=== PATIENT | male | born 1960 | race Caucasian/White ===

== ENCOUNTER 2018-10-08 07:48 | Emergency (ER) | payer BC ==
--- NOTE | 2018-10-08 07:50 | ERPHSYRPT ---
- History of Present Illness Time Seen by Provider: 10/08/18 07:49 Source: patient, family Exam Limitations: no limitations Physician History: 58 y/o diabetic white male with h/o htn, scraped left ant knee 2 weeks ago. pt has been washing, scrubbing area and applied antibx ointment. pt states he "lanced" area and did get a small amt pus out. sx not improving. pt states his last tetanus injection was 2 to 3 years ago Timing/Duration: day(s) (14) Quality: painful Severity: mild Location: extremities (skin of ant left knee) Possible Causes: other (abrasion) Associated Symptoms: change in skin texture Allergies/Adverse Reactions: No Known Drug Allergies Allergy (Verified 04/15/13 10:11) Home Medications: Aspirin EC 81 mg [Ecotrin 81 mg] 81 mg PO DAILY 08/22/12 [History] Gemfibrozil 600 mg [Lopid 600 mg] 600 mg PO DAILY 08/22/12 [History] Insulin Glargine [Lantus Insulin] 10 unit SQ HS 08/22/12 [History] Lisinopril 10 mg [Zestril 10 MG] 10 mg PO DAILY 08/22/12 [History] Metformin HCl 1000 mg [Glucophage 1000 MG] 1,000 mg PO BID 08/22/12 [History] [place]-3 Fatty Acids/Fish Oil [Fish Oil 1,000 mg Capsule] 1,000 mg PO DAILY 08/22/12 [History] Hx Tetanus, Diphtheria Vaccination/Date Given: Yes (2009) Hx Influenza Vaccination/Date Given: Yes (2011) Hx Pneumococcal Vaccination/Date Given: No - Review of Systems Constitutional: No Symptoms, No Fever Eyes: No Symptoms Ears, Nose, & Throat: No Symptoms Respiratory: No Symptoms Cardiac: No Symptoms Abdominal/Gastrointestinal: No Symptoms Genitourinary Symptoms: No Symptoms Musculoskeletal: No Symptoms Skin: Cellulitis, Induration Neurological: No Symptoms Psychological: No Symptoms Endocrine: No Symptoms Hematologic/Lymphatic: No Symptoms Immunological/Allergic: No Symptoms All Other Systems: Reviewed and Negative - Past Medical History Pertinent Past Medical History: Yes Neurological History: No Pertinent History ENT History: No Pertinent History Cardiac History: Hypertension Respiratory History: No Pertinent History Endocrine Medical History: Diabetes Type II Musculoskeletal History: Osteoarthritis, Rheumatoid Arthritis GI Medical History: No Pertinent History History: No Pertinent History Psycho-Social History: No Pertinent History Male Reproductive Disorders: No Pertinent History - Past Surgical History Past Surgical History: Yes Neuro Surgical History: No Pertinent History Cardiac: No Pertinent History Respiratory: No Pertinent History Gastrointestinal: No Pertinent History Genitourinary: No Pertinent History Musculoskeletal: Orthopedic Surgery Male Surgical History: No Pertinent History Other Surgical History: rt knee ,rt hand arm - Social History Smoking Status: Never smoker How long have you smoked: 5 years Exposure to second hand smoke: No Drug Use: none Patient Lives Alone: No - Physical Exam General Appearance: no apparent distress, alert Eye Exam: PERRL/EOMI, eyes nml inspection Ears, Nose, Throat Exam: normal ENT inspection, moist mucous membranes Neck Exam: normal inspection, non-tender, supple, full range of motion Respiratory Exam: normal breath sounds, lungs clear, airway intact, No chest tenderness, No respiratory distress Gastrointestinal/Abdomen Exam: soft, No tenderness Rectal Exam: not done Back Exam: normal inspection, normal range of motion, No CVA tenderness Extremity Exam: normal range of motion, pelvis stable, inflammation, swelling, tenderness (ant left knee redness and induration; no expressible pus at this time) Neurologic Exam: alert, oriented x 3, cooperative, cullet washer II-XII nml as tested, normal mood/affect, nml station & gait Skin Exam: other (skin of ant left knee with localized cellulitis and induration ; see above) Lymphatic Exam: No adenopathy SpO2 Interpretation: normal O2 Delivery: Room Air - Course Nursing assessment & vital signs reviewed: Yes - Progress Progress: unchanged Counseled pt/family regarding: diagnosis, need for follow-up - Departure Departure Disposition: Home Clinical Impression: Cellulitis of left knee Condition: Stable Critical Care Time: No Referrals: KYLIE MARIN [Primary Care Provider] - Additional Instructions: keep site clean daily with soap and water. no antibiotic ointments lotions or creams. may use heating pad, not directly on skin and at warm setting, 3 times daily. return to ED tomorrow morning for reevaluation, sooner if symptoms worsening. Prescriptions: Smz/Tmp Ds Tablet [Bactrim Ds Tablet] 1 udtab PO BID #14 tablet
[2018-10-08] MEDS ORDERED: NORCO 5/325 MG ONE (08:01)
[2018-10-08] MEDS ORDERED: Rocephin 1000 MG INJ ONE (08:01)
[2018-10-08] MEDS ORDERED: BACTRIM DS TABLET PO ONE (08:01)
[2018-10-08] MEDS: Rocephin 1000 MG INJ IM ONE (08:09)
[2018-10-08] MEDS: BACTRIM DS TABLET PO ONE (08:09)
[2018-10-08] MEDS: NORCO 5/325 MG PO ONE (08:11)
[2018-10-08 08:42] VITALS: BP 148/70; PULSE 92; O2SAT 98
== END 2018-10-08 08:43 | disposition home or self-care (01) ==
LOC: ED 07:48
DX: L03.116 Cellulitis of left lower limb (principal); I10 Essential (primary) hypertension; E11.9 Type 2 diabetes mellitus without complications; Z79.4 Long term (current) use of insulin; M06.9 Rheumatoid arthritis, unspecified; Z79.899 Other long term (current) drug therapy
CPT/HCPCS: 87070; 87077; 87186; 96372; 99284; J0696; A9270-GY

== ENCOUNTER 2018-10-09 07:56 | Emergency (ER) | payer BC ==
[2018-10-09 08:37] LABS: BASOPHIL % 0.2 % (0.0-0.4); Basophil (Absolute #) 0.02 (0-0.4); Eosinophil % 3.1 % (0.00-5.0); Eosinophil (Absolute #) 0.34 (0-0.5); Granulocyte Absolute (ANC) 7.34 (1.4-6.9); Granulocytes % 67.2 % (36.0-66.0); Lymphocyte (Absolute #) 2.39 (1.0-4.6); Lymphocytes % 21.9 % (24.0-44.0); Mean Cell Volume 91.6 fl (78-100); Mean Corpuscular Hemoglobin 30.5 pg (26-32); Mean Corpuscular Hgb Concent. 33.3 g/dl (32-36); Mean Platelet Volume 10.9 fl (6-9.5); Monocyte (Absolute #) 0.83 (0.0-1.3); Monocytes % 7.6 % (0.0-12.0); Platelet Count 218 K/mm3 (150-450); Red Blood Count 3.93 M/mm3 (4.1-5.6); Red Cell Distribution Width 13.1 % (11.5-14.0); White Blood Count 10.9 K/mm3 (4.0-10.5)
[2018-10-09 08:51] LABS: ANION GAP 13.9 MEQ/L (5-15); BLOOD UREA NITROGEN 16 mg/dL (9-20); CHLORIDE 109 mmol/L (98-107); Calcium 9.7 mg/dL (8.4-10.2); Carbon Dioxide 23 mmol/L (22-30); Creatinine 1 0.81 mg/dL (0.66-1.25); Glucose 182 mg/dL (74-106); Potassium 4.6 mmol/L (3.5-5.1); SODIUM 141 mmol/L (137-145)
[2018-10-09] MEDS ORDERED: Zosyn 3.375GM/100 Ml D5W 3.375 GM/100 ML IVPB IV STA (09:39)
[2018-10-09] MEDS ORDERED: MORPHINE SULFATE 2 MG INJ IV ONE (09:40)
[2018-10-09] MEDS ORDERED: MORPHINE SULFATE 2 MG INJ ONE (09:41)
[2018-10-09] MEDS ORDERED: Vancomycin 1GM/ Ns 250ML*** 250 ML IV ONE ×2 (09:42→13:24)
[2018-10-09] MEDS: Vancomycin 1GM/ Ns 250ML*** 1 GM/250 ML IVPB IV SCH ×2 (09:44→13:25)
--- NOTE | 2018-10-09 11:14 | XRAY ---
Indication: Left knee abscess 2 weeks. Pain, erythema, and swelling. Conventional contrast enhanced CTA centered around the left knee was performed using 100 cc Isovue 370 contrast. Cutaneous markers placed over the region of interest. Two-dimensional sagittal and coronal reformatted images obtained. Additional 3-dimensional reformatted images obtained using a separate workstation. Comparison: None Left knee articulation intact. There are 4 cutaneous BB markers anterior lateral to the knee joint demonstrating cutaneous/subcutaneous soft tissue swelling/induration favoring cellulitis based on clinical history. Minimal fluid in the deep soft tissues presumed reactive but no walled off fluid collection, emphysema or suspicious solid/cystic mass. Visualized distal superficial femoral, popliteal, and proximal trifurcation arteries are normal in CTA appearance. Accompanying venous vessels and visualized soft tissues are unremarkable. There is mild medial knee joint space narrowing/spurring and tiny nonspecific effusion. Tiny bony exostosis emanates from the posterior medial tibial shaft. No acute fracture or suspicious bony lesions. Impression: 1. CTA of the left knee is negative for critical stenosis, obstruction, or AV malformation. 2. Anterior lateral knee cutaneous and subcutaneous soft tissue swelling/induration favoring cellulitis with minimal reactive fluid. No walled off fluid collection/emphysema. 3. Incidental medial knee degenerative changes. CT DI 20.63
[2018-10-09] MEDS ORDERED: Zosyn 3.375GM/100 Ml D5W 3.375 GM/100 ML IVPB IV ONE (11:55)
--- NOTE | 2018-10-09 12:10 | ERPHSYRPT ---
- History of Present Illness Source: patient Exam Limitations: no limitations Patient Subjective Stated Complaint: DX YESTERDAY IN ER WITH ABSCESS OF LEFT KNEE. WAS TOLD TO COME BACK TODAY TO ER FOR REEVALUATION OF ABSCESS. Triage Nursing Assessment: AMBULATED TO ROOM PER SELF WITHOUT DIFFICULTY. SKIN W/D, COLOR NORMAL. ABSCESS NOTED TO LEFT KNEE WITHOUT DRAINAGE. AREA WAS MARKED WITH INK PEN YESTERDAY AND THERE IS SOME INCREASED AREA OF REDNESS NOTED. Physician History: Pt is a 58 y/o male that presented to the ER yesterday, secondary to wound on his L knee. Pt fell on the knee a couple of weeks ago, and developed a wound. He treated it at home, and lanced it at home as well. He came yesterday, and his wound was cultured, and he was placed on Bactrim. Pt was instructed to come back to the ER, if no improvement. Pt presented today. Pt denies F/C/S. No SOB or cough. No chest pain or palpitations. There is pain of the L knee, but the wound is closed at this point. Method of Injury: fell Occurred: other (a couple of weeks ago.) Quality: constant, aching, throbbing Lower Extremities Pain: knee: left (wound and pain) Modifying Factors: Improves With: movement, pain medication, rest Associated Symptoms: none Allergies/Adverse Reactions: No Known Drug Allergies Allergy (Verified 04/15/13 10:11) Home Medications: Aspirin EC 81 mg [Ecotrin 81 mg] 81 mg PO DAILY 08/22/12 [History] Gemfibrozil 600 mg [Lopid 600 mg] 600 mg PO DAILY 08/22/12 [History] Lisinopril 10 mg [Zestril 10 MG] 10 mg PO DAILY 08/22/12 [History] Metformin HCl 1000 mg [Glucophage 1000 MG] 1,000 mg PO BID 08/22/12 [History] [place]-3 Fatty Acids/Fish Oil [Fish Oil 1,000 mg Capsule] 1,000 mg PO DAILY 08/22/12 [History] Insulin Glargine,Hum.rec.anlog [Basaglar Kwikpen U-100] 25 unit SQ DAILY [History] Sildenafil Citrate [Viagra] 100 mg PO UD 10/09/18 [History] Zolpidem Tartrate 10 mg PO HS 10/09/18 [History] Hx Tetanus, Diphtheria Vaccination/Date Given: Yes (2009) Hx Influenza Vaccination/Date Given: Yes (2011) Hx Pneumococcal Vaccination/Date Given: No - Review of Systems Constitutional: No Fever, No Chills Eyes: No Symptoms Ears, Nose, & Throat: No Symptoms Respiratory: No Cough, No Dyspnea Cardiac: No Chest Pain, No Edema, No Syncope Abdominal/Gastrointestinal: No Abdominal Pain, No Nausea, No Vomiting, No Diarrhea Genitourinary Symptoms: No Dysuria Musculoskeletal: Arthralgias, Joint Redness, Joint Pain, Joint Swelling (L knee) Neurological: No Dizziness, No Focal Weakness, No Sensory Changes - Past Medical History Pertinent Past Medical History: Yes Neurological History: No Pertinent History ENT History: No Pertinent History Cardiac History: Hypertension Respiratory History: No Pertinent History Endocrine Medical History: Diabetes Type II Musculoskeletal History: Osteoarthritis, Rheumatoid Arthritis GI Medical History: No Pertinent History History: No Pertinent History Psycho-Social History: No Pertinent History Male Reproductive Disorders: No Pertinent History - Past Surgical History Past Surgical History: Yes Neuro Surgical History: No Pertinent History Cardiac: No Pertinent History Respiratory: No Pertinent History Gastrointestinal: No Pertinent History Genitourinary: No Pertinent History Musculoskeletal: Orthopedic Surgery Male Surgical History: No Pertinent History Other Surgical History: rt knee ,rt hand arm - Social History Smoking Status: Current every day smoker How long have you smoked: 5 years Exposure to second hand smoke: No Drug Use: none Patient Lives Alone: No - Nursing Vital Signs Nursing Vital Signs: Initial Vital Signs Temperature 98.3 F 10/09/18 08:12 Pulse Rate 86 10/09/18 08:12 Respiratory Rate 16 10/09/18 08:12 Blood Pressure 152/85 10/09/18 08:12 O2 Sat by Pulse Oximetry 98 10/09/18 08:12 Pain Scale Pain Intensity 5 - Physical Exam General Appearance: alert Eyes, Ears, Nose, Throat Exam: moist mucous membranes Neck Exam: non-tender, supple Cardiovascular/Respiratory Exam: chest non-tender, normal breath sounds, regular rate/rhythm, no respiratory distress Gastrointestinal/Abdominal Exam: non-tender, guarding Knees Exam: left knee: joint effusion, pain, soft tissue tenderness, swelling ( wound) Neuro/Tendon Exam: normal sensation, normal motor functions Mental Status Exam: alert, oriented x 3, cooperative SpO2: 98 - Course Nursing assessment & vital signs reviewed: Yes - CT Exams Left Lower Extremity CT Interpretation: Tele-radiologist Report (Anterior lateral knee cutanous and subcutaneous soft tissue swelling/induration favoring cellulitis with minimal reactive fluid. No walled off fluid collection/emphysema.) Ordered Tests: Active Orders 24 hr Category Date Time Status IV Insertion STAT Care 10/09/18 08:20 Active LOWER EXTREMITY W CONTRAST [CTA LOWER EXTREMITY W Exams 10/09/18 09:42 Completed CONTRAST] [CT] Stat BLOOD CULTURE Stat Lab 10/09/18 09:00 Received BMP Stat Lab 10/09/18 08:30 Completed CBC W DIFF Stat Lab 10/09/18 08:19 Completed Medication Summary Generic Name Dose Route Start Last Admin Trade Name Freq PRN Reason Stop Dose Admin Vancomycin HCl 1 gm in 250 mls @ 167 mls/hr 10/09/18 09:45 10/09/18 09:44 Vancomycin 1gm/ Ns 250ml IV 10/09/18 11:44 167 mls/hr Q1H STEPHANIE Administration Discontinued Medications Generic Name Dose Route Start Last Admin Trade Name Freq PRN Reason Stop Dose Admin Piperacillin Sod/Tazobactam Sod 3.375 gm in 100 mls @ 200 mls/hr 10/09/18 09: 39 Zosyn 3.375gm/100 Ml D5w IV 10/09/18 10:08 STAT STA Piperacillin Sod/Tazobactam Sod Confirm 10/09/18 11:55 Zosyn 3.375gm/100 Ml D5w Administered 10/09/18 11:56 Dose 3.375 gm in 100 mls @ ud IV .STK-MED ONE Morphine Sulfate 2 mg 10/09/18 09:40 10/09/18 09:43 Morphine Sulfate 2 Mg Inj IV 10/09/18 09:41 2 mg STAT ONE Administration Morphine Sulfate Confirm 10/09/18 09:41 Morphine Sulfate 2 Mg Inj Administered 10/09/18 09:42 Dose 2 mg .ROUTE .STK-MED ONE Lab/Rad Data: Laboratory Result Diagrams 10/09/18 08:19 10/09/18 08:30 Laboratory Results 10/09/18 10/09/18 Range/Units 08:30 08:19 WBC 10.9 H (4.0-10.5) K/mm3 RBC 3.93 L (4.1-5.6) M/mm3 Hgb 12.0 L (12.5-18.0) gm/dl Hct 36.0 L (42-50) % MCV 91.6 (78-100) fl MCH 30.5 (26-32) pg MCHC 33.3 (32-36) g/dl RDW 13.1 (11.5-14.0) % Plt Count 218 (150-450) K/mm3 MPV 10.9 H (6-9.5) fl Gran % 67.2 H (36.0-66.0) % Eos # (Auto) 0.34 (0-0.5) Absolute Lymphs (auto) 2.39 (1.0-4.6) Absolute Monos (auto) 0.83 (0.0-1.3) Lymphocytes % 21.9 L (24.0-44.0) % Monocytes % 7.6 (0.0-12.0) % Eosinophils % 3.1 (0.00-5.0) % Basophils % 0.2 (0.0-0.4) % Absolute Granulocytes 7.34 H (1.4-6.9) Basophils # 0.02 (0-0.4) Sodium 141 (137-145) mmol/L Potassium 4.6 (3.5-5.1) mmol/L Chloride 109 H (98-107) mmol/L Carbon Dioxide 23 (22-30) mmol/L Anion Gap 13.9 (5-15) MEQ/L BUN 16 (9-20) mg/dL Creatinine 0.81 (0.66-1.25) mg/dL Estimated GFR > 60.0 ML/MIN Glucose 182 H (74-106) mg/dL Calcium 9.7 (8.4-10.2) mg/dL - Progress Progress: unchanged Progress Note: 10/09/18 12:13 Pt was seen and examined. Labs were done, and showed leukocytosis with WBCs of 10.9. Pt had blood culturesx2 done, Vanco and Zosyn was given IV. Dr Marin, would like pt to go to [facility], secondary to fear of septic arthritis , and not having ortho here. Transfer center was contacted, and pt was auto accepted. Dr Ramires accepted pt to the ER. Will see patient in: other (Transfer to regional ER) - Departure Departure Disposition: Transfer Clinical Impression: Cellulitis of left knee Condition: Stable Critical Care Time: No Referrals: KYLIE MARIN [Primary Care Provider] - Additional Instructions: Pt to be transferred to [facility] ER, Dr Ramires accepted.
[2018-10-09 14:25] VITALS: BP 122/72; PULSE 68; O2SAT 97
== END 2018-10-09 14:30 | disposition short-term general hospital (02) ==
LOC: ED 07:56
DX: L03.116 Cellulitis of left lower limb (principal)
CPT/HCPCS: 36000; 36415; 73706; 80048; 85025; 87040; 96365; 96366; 96367; 96374; 99285; J2270; J2543; J3370

== ENCOUNTER 2020-04-22 07:56 | Day surgery (SDC) | payer OTHER ==
[2020-04-22] MEDS ORDERED: Depo-Medrol 40 MG/ML IM ONE (07:57)
[2020-04-22] MEDS ORDERED: LIDOCAINE HCL 2% 100 MG/5 ML IJ ONE (07:57)
[2020-04-22] MEDS ORDERED: Ketamine HCl 50 MG/ML ONE (09:35)
[2020-04-22] MEDS ORDERED: DIPRIVAN 200 MG/20 ML IV ONE ×2 (09:35→09:48)
--- NOTE | 2020-04-22 11:31 | XRAY ---
Indication: Bilateral L4-S1 MBB. Intraoperative fluoroscopy was provided for 1 minute 4 seconds. 5 digital spot images submitted for interpretation demonstrates posterior needle tips projecting over the expected left and right L4-S1 nerve roots. Correlate with intraoperative findings/report. Incidental L4-L5 fusion surgery with bilateral posterior spinal hardware and intervertebral spacer.
--- NOTE | 2020-04-22 11:33 | XRAY ---
1 minute 4 seconds of fluoroscopy was used in surgery for a bilateral L4-L5 and L5-S1 MBB.
[2020-04-22] MEDS ORDERED: Lactated Ringers 1,000 ML IV ONE (15:53)
== END 2020-04-22 10:10 | disposition home or self-care (01) ==
LOC: SDC-PAIN 07:56
PROVIDERS: ATTEND Psychiatry & Neurology Pain Medicine
DX: M47.816 Spondylosis without myelopathy or radiculopathy, lumbar region (principal); E11.9 Type 2 diabetes mellitus without complications; I10 Essential (primary) hypertension; E78.00 Pure hypercholesterolemia, unspecified; E11.42 Type 2 diabetes mellitus with diabetic polyneuropathy; M06.9 Rheumatoid arthritis, unspecified; M79.7 Fibromyalgia; L40.50 Arthropathic psoriasis, unspecified; Z79.899 Other long term (current) drug therapy
CPT/HCPCS: 64493; 64494; 72020; 77002; 82947; J1030; J2704

== ENCOUNTER 2020-06-24 06:57 | Day surgery (SDC) | payer BC, OTHER ==
[2020-06-24] MEDS ORDERED: BUPIVACAINE 0.5% VIAL IJ ONE (06:58)
[2020-06-24] MEDS ORDERED: Depo-Medrol 40 MG/ML IM ONE (06:58)
[2020-06-24] MEDS ORDERED: Ketamine HCl 50 MG/ML ONE (07:55)
[2020-06-24] MEDS ORDERED: DIPRIVAN 200 MG/20 ML IV ONE (07:55)
--- NOTE | 2020-06-24 09:21 | XRAY ---
25 seconds fluoroscopy time in surgery for bilateral injections of the SI joints.
--- NOTE | 2020-06-24 09:22 | XRAY ---
Indication: Bilateral SI joint injection. Intraoperative fluoroscopy provided for 25 seconds. 4 digital spot images submitted for interpretation demonstrates posterior needle tip projecting over the inferior left and right SI joint. Correlate with intraoperative findings/report.
[2020-06-24] MEDS ORDERED: Lactated Ringers 1,000 ML IV ONE (14:31)
== END 2020-06-24 08:49 | disposition home or self-care (01) ==
LOC: SDC-PAIN 06:57
PROVIDERS: ATTEND Psychiatry & Neurology Pain Medicine
DX: M46.1 Sacroiliitis, not elsewhere classified (principal); E11.42 Type 2 diabetes mellitus with diabetic polyneuropathy; I10 Essential (primary) hypertension; M06.9 Rheumatoid arthritis, unspecified; E78.00 Pure hypercholesterolemia, unspecified; M79.7 Fibromyalgia
CPT/HCPCS: 27096; 72202; 77002; 82947; G0260; J1030; J2704

== ENCOUNTER 2020-09-09 06:58 | Day surgery (SDC) | payer OTHER ==
[2020-09-09] MEDS ORDERED: BUPIVACAINE 0.5% VIAL IJ ONE (06:59)
[2020-09-09] MEDS ORDERED: DIPRIVAN 200 MG/20 ML IV ONE (08:27)
--- NOTE | 2020-09-09 10:44 | XRAY ---
Indication: Bilateral L4-S1 MBB. Intraoperative fluoroscopy provided for 22 seconds. Single digital spot images submitted for interpretation demonstrates posterior needle tips projecting over the expected left and right L4-S1 nerve roots. Correlate with intraoperative findings/report. Incidental L4- L5 fusion surgery with bilateral posterior spinal hardware and intervertebral spacer.
--- NOTE | 2020-09-09 11:55 | XRAY ---
22 seconds of fluoroscopy was used in surgery for a bilateral L4-L5, L5-S1 MBB.
[2020-09-09] MEDS ORDERED: Lactated Ringers 1,000 ML IV ONE (15:59)
== END 2020-09-09 08:55 | disposition home or self-care (01) ==
LOC: SDC-PAIN 06:58
PROVIDERS: ATTEND Psychiatry & Neurology Pain Medicine
DX: M47.816 Spondylosis without myelopathy or radiculopathy, lumbar region (principal); I10 Essential (primary) hypertension; E78.5 Hyperlipidemia, unspecified; M79.7 Fibromyalgia; E11.42 Type 2 diabetes mellitus with diabetic polyneuropathy; Z79.899 Other long term (current) drug therapy
CPT/HCPCS: 64493; 64494; 72020; 77002; 82947; J2704

== ENCOUNTER 2020-10-21 08:06 | Day surgery (SDC) | payer OTHER ==
[2020-10-21] MEDS ORDERED: Depo-Medrol 40 MG/ML IM ONE (08:07)
[2020-10-21] MEDS ORDERED: Xylocaine 1% Vial 30 ML PF IJ ONE (08:07)
[2020-10-21] MEDS ORDERED: BUPIVACAINE 0.5% VIAL IJ ONE (08:07)
[2020-10-21] MEDS ORDERED: DIPRIVAN 200 MG/20 ML IV ONE ×2 (08:56→09:02)
--- NOTE | 2020-10-21 11:34 | XRAY ---
Indication: Left L4-S1 RFA. Intraoperative fluoroscopy provided for 58 seconds. 3 digital spot images submitted for interpretation demonstrates posterior needle tips projecting over the expected left L4-S1 nerve roots. Correlate with intraoperative findings/report. Incidental bilateral L4-L5 posterior fusion hardware/intervertebral spacer.
--- NOTE | 2020-10-21 11:40 | XRAY ---
58 seconds fluoroscopy time in surgery for left L4-S1 RFA.
[2020-10-21] MEDS ORDERED: Lactated Ringers 1,000 ML IV ONE (11:41)
== END 2020-10-21 09:36 | disposition home or self-care (01) ==
LOC: SDC-PAIN 08:06
PROVIDERS: ATTEND Psychiatry & Neurology Pain Medicine
DX: M47.816 Spondylosis without myelopathy or radiculopathy, lumbar region (principal); E11.9 Type 2 diabetes mellitus without complications; Z79.899 Other long term (current) drug therapy
CPT/HCPCS: 64635; 64636; 72100; 77002; 82947; J1030; J2001; J2704

== ENCOUNTER 2020-10-28 06:54 | Day surgery (SDC) | payer OTHER ==
[2020-10-28] MEDS ORDERED: Depo-Medrol 40 MG/ML IM ONE (06:55)
[2020-10-28] MEDS ORDERED: Xylocaine 1% Vial 30 ML PF IJ ONE (06:55)
[2020-10-28] MEDS ORDERED: BUPIVACAINE 0.5% VIAL IJ ONE (06:55)
[2020-10-28] MEDS ORDERED: DIPRIVAN 200 MG/20 ML IV ONE ×2 (08:00→08:25)
[2020-10-28] MEDS ORDERED: Ketamine HCl 50 MG/ML ONE (08:01)
[2020-10-28] MEDS ORDERED: Lactated Ringers 1,000 ML IV ONE (15:52)
--- NOTE | 2020-10-29 11:52 | XRAY ---
1 minute and 4 seconds of fluoroscopy was used in surgery for a right L4-S1 RFA.
--- NOTE | 2020-10-31 23:31 | XRAY ---
Indication: Right L4-S1 RFA: Intraoperative fluoroscopy was provided for 1 minute, 4 seconds. 4 digital spot images submitted for interpretation demonstrate posterior needle tips projected over the expected course of the right L4-S1 nerve roots. Orthopedic hardware from prior posterior surgical fusion at L4-L5 is seen. A spacer device is seen at L4-L5. Correlate with intraoperative findings/report.
== END 2020-10-28 08:55 | disposition home or self-care (01) ==
LOC: SDC-PAIN 06:54
PROVIDERS: ATTEND Psychiatry & Neurology Pain Medicine
DX: M47.816 Spondylosis without myelopathy or radiculopathy, lumbar region (principal); E11.9 Type 2 diabetes mellitus without complications; Z79.899 Other long term (current) drug therapy
CPT/HCPCS: 64635; 64636; 72100; 77002; 82947; J1030; J2001; J2704

== ENCOUNTER 2021-01-20 10:51 | Day surgery (SDC) | payer OTHER ==
[2021-01-20] MEDS ORDERED: Depo-Medrol 40 MG/ML IM ONE (10:52)
[2021-01-20] MEDS ORDERED: BUPIVACAINE 0.5% VIAL IJ ONE (10:52)
[2021-01-20] MEDS ORDERED: DIPRIVAN 200 MG/20 ML IV ONE (11:59)
--- NOTE | 2021-01-20 13:27 | XRAY ---
Indication: Right L3-L5 transforaminal GARIMA. Intraoperative fluoroscopy provided for 26 seconds. 2 digital spot images submitted for interpretation demonstrates posterior needle tips projecting over the expected right L2 and L3 nerve roots. Small amount of contrast injected for both needle tip placement. Correlate with intraoperative findings/report. Incidental incompletely visualized L4-L5 posterior spinal fusion hardware.
--- NOTE | 2021-01-20 13:38 | XRAY ---
26 seconds fluoroscopy time in surgery for right L3-L5 transforaminal GARIMA.
--- NOTE | 2021-01-20 13:38 | XRAY ---
Indication: Right hip injection. Intraoperative fluoroscopy provided for 32 seconds. Single digital spot image submitted for interpretation demonstrates needle tip lateral to the right femur neck. Small amount of contrast injected for needle tip placement. Correlate with intraoperative findings/report.
--- NOTE | 2021-01-20 13:48 | XRAY ---
32 seconds fluoroscopy time in surgery for intra-articular injection of the right hip.
[2021-01-20] MEDS ORDERED: Lactated Ringers 1,000 ML IV ONE (17:26)
== END 2021-01-20 12:33 | disposition home or self-care (01) ==
LOC: SDC-PAIN 10:51
PROVIDERS: ATTEND Psychiatry & Neurology Pain Medicine
DX: M16.11 Unilateral primary osteoarthritis, right hip (principal); M54.16 Radiculopathy, lumbar region; F41.9 Anxiety disorder, unspecified; F32.9 Major depressive disorder, single episode, unspecified; I10 Essential (primary) hypertension; E78.5 Hyperlipidemia, unspecified; E11.42 Type 2 diabetes mellitus with diabetic polyneuropathy; Z79.899 Other long term (current) drug therapy
CPT/HCPCS: 20610; 64483; 64484; 72100; 73501; 77002; 77003; 82947; J1030; J2704; Q9966

== ENCOUNTER 2021-02-22 05:51 | Day surgery (SDC) | payer OTHER ==
[2021-02-22] MEDS ORDERED: Lactated Ringers 1,000 ML IV SCH (06:30)
[2021-02-22] MEDS ORDERED: DIPRIVAN 200 MG/20 ML IV ONE ×4 (07:15→08:06)
[2021-02-22] MEDS ORDERED: Versed 2 MG/2 ML Injection ONE (07:15)
[2021-02-22] MEDS ORDERED: Lactated Ringers 1,000 ML IV ONE (08:05)
[2021-02-22 09:02] VITALS: O2SAT 94
[2021-02-22 09:22] VITALS: BP 140/90; PULSE 74
--- NOTE | 2021-02-22 10:16 | OP ---
SURGERY DATE/TIME: 02/22/2021 0729 PREOPERATIVE DIAGNOSIS: Screening exam. POSTOPERATIVE DIAGNOSIS: Polyps in the transverse colon x3. PROCEDURE: Colonoscopy with polypectomy. SURGEON: Dr. Wynne. ANESTHESIA: MAC. Medications given by anesthesia department. HISTORY: The patient is a 61-year-old white male patient presenting now for screening colonoscopy. He reports he had one many years ago and everything was fine at that time. The patient is now presenting for routine screening colonoscopy. The patient was appraised of the risks of the procedure including the risk of perforation, phlebitis, untoward reaction to medication, bleeding and missed lesions. The patient verbalized his understanding and desired to have the procedure performed. DESCRIPTION OF PROCEDURE: The patient was given the medications by the anesthesia department. He had continuous pulse oximetry, ECG monitoring, intermittent blood pressure monitoring and tidal CO2 monitoring during the examination. He was placed in the left lateral decubitus position. A digital rectal examination was performed and revealed normal anal sphincter tone, no masses and normal prostate. The flexible Olympus pediatric colonoscope was used to intubate the rectum. A view of the colon was developed sequentially to the cecum. Upon insertion and withdrawal was noted a small polyp in the proximal colon this is biopsied using cold biopsy technique. There were two larger polyps in the mid and distal colon which measured approximately 1.5 cm in size and were removed using polypectomy hot snare technique and retrieved for pathologic evaluation. No other mucosal lesions being noted, the scope was removed from the patient who tolerated the procedure well and was sent back to OP recovery in good condition. The prep was noted to be fair.
== END 2021-02-22 09:43 | disposition home or self-care (01) ==
LOC: SDC 05:51
PROVIDERS: ATTEND Family Medicine
DX: Z12.11 Encounter for screening for malignant neoplasm of colon (principal); D12.4 Benign neoplasm of descending colon; D12.3 Benign neoplasm of transverse colon
CPT/HCPCS: 88305; J2250; J2704

== ENCOUNTER 2021-02-24 07:40 | Day surgery (SDC) | payer OTHER ==
[2021-02-24] MEDS ORDERED: BUPIVACAINE 0.5% VIAL IJ ONE (07:41)
[2021-02-24] MEDS ORDERED: Depo-Medrol 40 MG/ML IM ONE (07:41)
[2021-02-24] MEDS ORDERED: Ketamine HCl 50 MG/ML ONE (08:37)
[2021-02-24] MEDS ORDERED: DIPRIVAN 200 MG/20 ML IV ONE (08:37)
[2021-02-24] MEDS ORDERED: Lactated Ringers 1,000 ML IV ONE (10:15)
--- NOTE | 2021-02-24 10:49 | XRAY ---
Indication: Bilateral SI joint injection. Intraoperative fluoroscopy provided for 28 seconds. 4 digital spot image submitted for interpretation demonstrates posterior needle tip projecting over the inferior left and right SI joint. Correlate with intraoperative findings/report.
--- NOTE | 2021-02-24 11:51 | XRAY ---
28 seconds fluoroscopy time in surgery for bilateral SI joint injections.
== END 2021-02-24 09:16 | disposition home or self-care (01) ==
LOC: SDC-PAIN 07:40
PROVIDERS: ATTEND Psychiatry & Neurology Pain Medicine
DX: M46.1 Sacroiliitis, not elsewhere classified (principal); I10 Essential (primary) hypertension; E11.9 Type 2 diabetes mellitus without complications; Z79.899 Other long term (current) drug therapy
CPT/HCPCS: 27096; 72202; 77002; 82947; G0260; J1030; J2704

== ENCOUNTER 2023-02-27 06:04 | Day surgery (SDC) | payer BC, MEDICARE, OTHER ==
[2023-02-27 06:24] VITALS: RESP 18; O2SAT 99
[2023-02-27] MEDS ORDERED: Lactated Ringers 1,000 ML IV ONE ×2 (06:32→07:42)
[2023-02-27] MEDS ORDERED: DIPRIVAN 200 MG/20 ML IV ONE (07:21)
[2023-02-27] MEDS ORDERED: Versed 2 MG/2 ML Injection ONE (07:21)
[2023-02-27 08:32] VITALS: BP 129/68; PULSE 54; TEMP 96.7
[2023-02-27 09:15] LABS: Calcium 9.5 mg/dL (8.4-10.2); Creatinine 1 0.83 mg/dL (0.66-1.25); Potassium 3.7 mmol/L (3.5-5.1); Prostate Specific Ag,Screen 4.79 ng/mL (0-4); Risk Ratio 3.4
[2023-02-27] MEDS ORDERED: Lactated Ringers 1,000 ML IV SCH (11:00)
--- NOTE | 2023-02-27 13:18 | OP ---
SURGERY DATE/TIME: 02/27/2023 0724 PREOPERATIVE DIAGNOSIS: History of colon polyps. POSTOPERATIVE DIAGNOSIS: Small polyp in the transverse colon. PROCEDURE: Colonoscopy with cold forceps biopsy. SURGEON: Dr. Wynne. ANESTHESIA: Medications given by anesthesia department. HISTORY: The patient is a 63-year-old white male patient now presenting for colonoscopic evaluation. He had previously had polyps removed two years ago that were large. The patient was felt the need to have endoscopic evaluation again. He was appraised of the risks of the procedure including the risk of perforation, phlebitis, untoward reaction to medication, bleeding and missed lesions. The patient verbalized his understanding and desired to have the procedure performed. DESCRIPTION OF PROCEDURE: The patient was given the medications by the anesthesia department. He had continuous pulse oximetry, ECG monitoring and intermittent blood pressure monitoring during the examination. He was placed in the left lateral decubitus position. A digital rectal examination was performed and revealed normal anal sphincter tone, no masses and a normal prostate. The flexible Olympus pediatric colonoscope was used to intubate the rectum. A view of the colon was developed sequentially to the cecum. Upon insertion and withdrawal, including a retroflex view in the rectum was noted one small polyp in a fold which appeared to be a possible tubular adenoma that was biopsied and destroyed with passage of the cold forceps biopsy. No other mucosal lesions being encountered, the scope was removed from the patient who tolerated the procedure well and was sent back to OP recovery in good condition. The prep was noted to be fair to good.
== END 2023-02-27 08:42 | disposition home or self-care (01) ==
LOC: SDC 06:04
PROVIDERS: ATTEND Family Medicine
DX: Z09 Encounter for follow-up examination after completed treatment for conditions other than malignant neoplasm (principal); Z86.010 Personal history of colon polyps; D12.3 Benign neoplasm of transverse colon; E78.5 Hyperlipidemia, unspecified; I10 Essential (primary) hypertension; Z12.5 Encounter for screening for malignant neoplasm of prostate; E11.9 Type 2 diabetes mellitus without complications
CPT/HCPCS: 36415; 45380; 80048; 80061; 82947; 83721; 84450; G0103; J2250; J2704